=== PATIENT | male | born 1995 | race Two or more races ===

== ENCOUNTER 2018-10-08 22:27 | Emergency (ER) | payer OTHER ==
[2018-10-08 22:37] VITALS: BP 141/82
[2018-10-09] MEDS ORDERED: IBUPROFEN 600 MG TABLET PO ONE (01:15)
--- NOTE | 2018-10-09 01:20 | ER Document Report ---
HPI - HPI Time Seen by Provider: 10/09/18 01:09 Pain Level: 4 Context: Patient is a 23-year-old male who presents to the emergency department with a chief complaint of right rib pain. Patient states that for about 2-1/2 weeks he has been battling a dry persistent cough. Patient states that on Saturday he developed a right mid to lower rib pain. Patient denies injury or fall. Patient denies chest pain. Patient states that the right rib pain is worse with twisting, movement and deep breathing. Patient denies fever. Patient has not taken any medication for this discomfort. Denies abdominal pain. Patient states he has had a normal appetite. Patient states he did just return from a soccer tournament in [place]. Patient states he did not have any injury or fall during this tournament. - REPRODUCTIVE Reproductive: DENIES: : Past Medical History - General Information source: Patient - Social History Smoking Status: Never Smoker Cigarette use (# per day): No Chew tobacco use (# tins/day): No Smoking Education Provided: No Frequency of alcohol use: None Drug Abuse: None Lives with: Friend Family History: None - Medical History Medical History: Negative - Past Medical History Cardiac Medical History: Reports: None Pulmonary Medical History: Reports: None EENT Medical History: Reports: None Neurological Medical History: Reports: None Endocrine Medical History: Reports: None Renal/ Medical History: Reports: None Malignancy Medical History: Reports None GI Medical History: Reports: None Musculoskeletal Medical History: Reports None Skin Medical History: Reports None Psychiatric Medical History: Reports: None Traumatic Medical History: Reports: None Infectious Medical History: Reports: None Vertical Provider Document - CONSTITUTIONAL Agree With Documented VS: Yes Notes: GENERAL: Well-appearing, well-nourished and in no acute distress. HEAD: Atraumatic, normocephalic. EYES: Pupils equal round and reactive to light, extraocular movements intact, sclera anicteric, conjunctiva are normal. ENT: TMs normal, nares patent, oropharynx clear without exudates. Moist mucous membranes. NECK: Normal range of motion, supple without lymphadenopathy or JVD. LUNGS: Breath sounds clear to auscultation bilaterally and equal. No wheezes rales or rhonchi. No tenderness of the right lateral rib cage with palpation. HEART: Regular rate and rhythm without murmurs, rubs or gallops. No re- producible chest pain. ABDOMEN: Soft, nontender, normoactive bowel sounds. No guarding, no rebound. No masses appreciated. BACK: No cervical, thoracic, lumbar midline tenderness. No saddle anesthesia, normal distal neurovascular exam. GENITOURINARY: Deferred. EXTREMITIES: Normal range of motion, no pitting or edema. No clubbing or cyanosis. NEUROLOGICAL: Cranial nerves II through XII grossly intact. Normal speech, normal gait. PSYCH: Normal mood, normal affect. SKIN: Warm, Dry, normal turgor, no rashes or lesions noted. - INFECTION CONTROL TRAVEL OUTSIDE OF THE [place] IN LAST 30 DAYS: No Course - Re-evaluation Re-evalutation: 10/09/18 01:19 She is PERC negative. I will obtain a chest x-ray to rule out pneumonia as patient has had a 2-1/2-week persistent dry cough. Give ibuprofen for pain. Patient's symptoms are consistent with musculoskeletal as it is worse with twisting, deep breath, movement and cough. 10/09/18 02:31 She is chest x-ray is negative for pneumonia or any acute abnormality. Patient is resting comfortably in chair and talking on cell phone. Patient states the ibuprofen did help with his pain. I did explain to the patient this could be a pleuritic type of pain or musculoskeletal in nature as it is worse with movement and cough. Prescribe ibuprofen as needed for pain. Patient to follow-up for worsening signs or symptoms. - Vital Signs Vital signs: Temp Pulse Resp BP Pulse Ox 98.6 F 98 24 H 141/82 H 98 10/08/18 22:35 10/08/18 22:35 10/08/18 22:35 10/08/18 22:35 10/08/18 22:35 Discharge - Discharge Clinical Impression: Rib pain, Pleuritic pain Condition: Stable Disposition: HOME, SELF-CARE Additional Instructions: Today you were seen in the emergency department for right rib pain. We did obtain a chest x-ray which was negative for pneumonia or any acute abnormality. Please follow-up with your primary care physician for continued pain. I am prescribing you ibuprofen which is an anti-inflammatory as this did help you with your discomfort while in the emergency department. Please return to the emergency department for any worsening signs or symptoms to include shortness of breath, chest pain, fever or any worsening signs or symptoms. Pleurisy Your chest pain has been diagnosed as pleuritis (pleurisy). This is an inflammation of the surface of the lung tissue. It can be caused by a virus or, occasionally, old scar tissue. It is painful but, for the most part, not a serious problem. This pain is usually made worse by deep breathing, coughing, or sudden movements of the upper body or arms. The treatment is relief of symptoms. It includes rest, antiinflammatory medication, and pain medicine. Resolution of the pain is usually rapid once antiinflammatory medication is started. Warning signs of a more serious problem include: a fever, shortness of breath, pain that radiates to your jaw, shoulders or arms, or coughing up bloody sputum. If any of these symptoms occur, call the physician at once. Prescriptions: Ibuprofen [Motrin 600 Mg Tablet] 600 mg PO TID #15 tablet
--- NOTE | 2018-10-09 02:04 | RADIOLOGY REPORT (SQ) ---
CLINICAL HISTORY: right rib pain, cough x 2 weeks COMPARISON: None. TECHNIQUE: XR CHEST 2 VIEWS 10/09/2018 1:15 AM CDT FINDINGS: Cardiac silhouette is normal in size. Lungs are clear without consolidation, atelectasis, mass or edema. There is no pleural effusion. There is no pneumothorax. There are no acute osseous findings. IMPRESSION: Clear lungs.
== END 2018-10-09 02:42 | disposition home or self-care (01) ==
LOC: EDSEX → ER 22:27
DX: R07.81 Pleurodynia (principal); R05 Cough
CPT/HCPCS: 71046; 99283